=== PATIENT | female | born 2000 | race Caucasian/White ===

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

== ENCOUNTER 2020-01-26 14:53 | Emergency (ER) | payer OTHER ==
[~2020-01-26] VITALS: Ht 154.9 cm; Wt 53.9 kg
[2020-01-26 14:53] VITALS: BP 110/72
[~2020-01-26 14:53] MED LIST changes: -LIDO1SOL8 SS; +LIDO2SOL17 SS
[2020-01-26] MEDS ORDERED: DEPO150I12 IM (14:57)
[2020-01-26] MEDS ORDERED: ONDANSETRON 4MG/2ML VIAL (J2405) IV ONE (16:30)
[2020-01-26] MEDS ORDERED: KETOROLAC 30 MG/ML VIAL (J1885) IV ONE (16:30)
[2020-01-26] MEDS ORDERED: NS 1,000 ML IV ONE (16:30)
== END 2020-01-26 16:49 | disposition left against medical advice (07) ==
LOC: M ED 14:53
DX: Z53.29 Procedure and treatment not carried out because of patient's decision for other reasons (principal); Z79.899 Other long term (current) drug therapy

== ENCOUNTER → 2020-08-04 | Outpatient (REF) | payer OTHER ==
[~2020-08-04] MED LIST changes: +DEPO150I12 IM
== END ==
LOC: M LAB REF 10:11
PROVIDERS: ATTEND Physician Assistant
DX: Z20.828 Contact with and (suspected) exposure to other viral communicable diseases (principal)

== ENCOUNTER → 2020-12-07 | Outpatient (REF) | payer OTHER ==
[2020-12-07 14:18] LABS: CHLAMYDIA DNA AMPLIFICATION NEGATIVE (NEGATIVE); GC DNA AMPLIFICATION NEGATIVE (NEGATIVE)
== END ==
LOC: M LAB REF 11:46
PROVIDERS: ATTEND Physician Assistant
DX: Z11.3 Encounter for screening for infections with a predominantly sexual mode of transmission (principal)

== ENCOUNTER 2021-10-01 15:11 | Emergency (ER) | payer OTHER ==
[~2021-10-01] VITALS: Ht 157.5 cm; Wt 55.3 kg
--- OUTSIDE RECORDS SUMMARY | 2021-10-01 15:19 | CCD ---
Author Author [facility] Organization [facility] Address Unknown Phone Unavailable Support Name Relationship Address Phone CHASITY COPELAND Next Of Kin [address] [place] [address] FOUZIA CANTU Next Of Kin [address] [place] [address] UE Next Of Kin Unknown Unavailable FOUZIA COPELAND Next Of Kin [address] [place] [address] Re-disclosure Warning The records that you are about to access may contain information from federally-assisted alcohol or drug abuse programs. If such information is present, then the following federally mandated warning applies: This information has been disclosed to you from records protected by federal confidentiality rules (42 CFR part 2). The federal rules prohibit you from making any further disclosure of this information unless further disclosure is expressly permitted by the written consent of the person to whom it pertains or as otherwise permitted by 42 CFR part 2. A general authorization for the release of medical or other information is NOT sufficient for this purpose. The Federal rules restrict any use of the information to criminally investigate or prosecute any alcohol or drug abuse patient.The records that you are about to access may contain highly sensitive health information, the redisclosure of which is protected by Article 27-F of the [facility] Public Health law. If you continue you may have access to information: Regarding HIV / AIDS; Provided by facilities licensed or operated by the [facility] Office of Mental Health; or Provided by the [facility] Office for People With Developmental Disabilities. If such information is present, then the following [facility] mandated warning applies: This information has been disclosed to you from confidential records which are protected by state law. State law prohibits you from making any further disclosure of this information without the specific written consent of the person to whom it pertains, or as otherwise permitted by law. Any unauthorized further disclosure in violation of state law may result in a fine or correction sentence or both. A general authorization for the release of medical or other information is NOT sufficient authorization for further disc losure. Encounters Encounter Providers Location Date Indications Data Source(s ) ( [place]) [facility] Nurse Visit [address] [place] [address] 01/22/2021 12:00:00 AM EST eCW1 ([facility]) ( [place]) [facility] Nurse Visit [address] [place] [address] 10/30/2020 12:00:00 AM EST eCW1 ([facility]) Immunizations Vaccine Date Status Description Data Source(s) 01/22/2021 01:35:00 PM EST completed e CW1 ([facility]) 10/30/2020 08:45:00 AM EST completed e CW1 ([facility]) 10/30/2020 08:45:00 AM EST completed e CW1 ([facility]) Medications Medication Brand Name Start Date Product Form Dose Route Admi nistrative Instructions Pharmacy Instructions Status Indications Reaction Description Data Source(s) 500 mg 12/07/2020 12:00:00 AM EST tablet 2 TAKE 2 TABLETS BY MOUTH TODAY TAKE 2 TABLETS BY MOUTH TODAY SOLD: 12/08/2020 [facility] 500 mg 11/03/2020 12:00:00 AM EST tablet 2 TAKE 2 TABLETS BY MOUTH ONCE NOW TAKE 2 TABLETS BY MOUTH ONCE NOW SOLD: 11/03/2020 [facility] Insurance Providers Payer name Policy type / Coverage type Policy ID Covered constitution party ID Covered constitution party's relationship to petit Policy Petit Plan Information [facility] [id number] SP [id number] [facility] [id number] SELF PAY UNAVAILABLE MO2 UNAVAILA BLE MEDICAID [id number] SP [id number] Problems, Conditions, and Diagnoses No Information Surgeries/Procedures Procedure Description Date Indications Data Source(s) Injection, medroxyprogesterone acetate for contraceptive use , 150 mg 01/22/2021 12:00:00 AM EST eCW1 ([facility]) Injection, medroxyprogesterone acetate for contraceptive use , 150 mg 10/30/2020 12:00:00 AM EST eCW1 ([facility]) URINE TEST 10/30/2020 12:00:00 AM EST eCW1 ([facility]) Results ID Date Data Source [id number] 01/10/2021 12:00:00 AM EST [facility] Name Value Range Interpretation Code Description Data Karen rce(s) Supporting Document(s) SARS-CoV2 Rapid Antigen [facility] This lab was ordered by [facility] and reported by [facility]. ID Date Data Source [id number] 08/04/2020 12:00:00 PM EDT [facility] Name Value Range Interpretation Code Description Data Karen rce(s) Supporting Document(s) SARS coronavirus 2 RNA [facility] This lab was ordered by [facility] and reported by [facility]. Procedure Social History No Information
--- OUTSIDE RECORDS SUMMARY | 2021-10-01 16:42 | CCD ---
Author Author [facility] Organization [facility] Address Unknown Phone Unavailable Support Name Relationship Address Phone CHASITY COPELAND Next Of Kin [address] [place] [address] FOUZIA CANTU Next Of Kin [address] [place] [address] UE Next Of Kin Unknown Unavailable FOUZIA COPELAND Next Of Kin [address] [place] [address] Re-disclosure Warning The records that you are [...] is protected by Article 27-F of the [facility] Public Health law. If you continue you may have access to information: Regarding HIV / AIDS; Provided by facilities licensed or operated by the [facility] Office of Mental Health; or Provided by the [facility] Office for People With Developmental Disabilities. If such information is present, then the following [facility] mandated warning applies: This information [...] law may result in a fine or [place] [facility] sentence or both. A general authorization for the release of medical or other information is NOT sufficient authorization for further disc losure. Encounters Encounter Providers Location Date Indications Data Source(s ) ( [place]) [facility] Nurse Visit [address] [place] [address] 01/22/2021 12:00:00 AM EST eCW1 ([facility]) ( [place]) [facility] Nurse Visit [address] [place] [address] 10/30/2020 12:00:00 AM EST eCW1 ([facility]) Immunizations Vaccine Date Status Description Data Source(s) 01/22/2021 01:35:00 PM EST completed e CW1 ([facility]) 10/30/2020 08:45:00 AM EST completed e CW1 ([facility]) 10/30/2020 08:45:00 AM EST completed e CW1 ([facility]) Medications Medication Brand Name Start Date Product [...] type / Coverage type Policy ID Covered democrat ID Covered democrat's relationship to petit Policy Petit Plan Information [facility] [id number] SP [id number] [facility] [id number] SELF PAY UNAVAILABLE MO2 UNAVAILA BLE MEDICAID [id number] SP [id number] Problems, Conditions, and Diagnoses No Information Surgeries/Procedures Procedure Description Date Indications Data Source(s) Injection, medroxyprogesterone acetate for contraceptive use , 150 mg 01/22/2021 12:00:00 AM EST eCW1 ([facility]) Injection, medroxyprogesterone acetate for contraceptive use , 150 mg 10/30/2020 12:00:00 AM EST eCW1 ([facility]) URINE TEST 10/30/2020 12:00:00 AM EST eCW1 ([facility]) Results ID Date Data Source [id number] 01/10/2021 12:00:00 AM EST [facility] Name Value Range Interpretation Code Description Data Karen rce(s) Supporting Document(s) SARS-CoV2 Rapid Antigen [facility] This lab was ordered by [facility] and reported by [facility]. ID Date Data Source [id number] 08/04/2020 12:00:00 PM EDT [facility] Name Value Range Interpretation Code Description Data Karen rce(s) Supporting Document(s) SARS coronavirus 2 RNA [facility] This lab was ordered by [facility] and reported by [facility]. Procedure Social History No Information
[2021-10-01] MEDS ORDERED: KETOROLAC 30 MG/ML 1ML VIAL IV ONE (17:15)
[2021-10-01 17:27] LABS: BASO # 0.1 10^3/uL (0.0-0.2); BASO % 0.6 % (0.0-1.0); EOS % 0.5 % (0.0-3.0); HEMATOCRIT 39.2 % (36.0-47.0); HEMOGLOBIN 13.3 g/dl (12.0-15.5); LYMPH # 1.4 10^3/uL (1.5-5.0); LYMPH % 17.2 % (24.0-44.0); MEAN CORPUSCULAR HEMOGLOBIN 30.4 pg (27.0-33.0); MEAN CORPUSCULAR HGB CONC 33.9 g/dl (32.0-36.5); MEAN CORPUSCULAR VOLUME 89.7 fl (80.0-96.0); MONO # 0.5 10^3/uL (0.0-0.8); MONO % 6.1 % (2.0-8.0); NEUTROPHILS % 75.3 % (36.0-66.0); PLATELET COUNT, AUTOMATED 243 10^3/uL (150-450); RED BLOOD COUNT 4.37 10^6/uL (4.00-5.40); WHITE BLOOD COUNT 7.9 10^3/uL (4.0-10.0)
[2021-10-01 17:40] LABS: ALBUMIN 4.1 GM/DL (3.2-5.2); BILIRUBIN,DIRECT 0.3 MG/DL (0.0-0.2); BILIRUBIN,TOTAL 1.4 MG/DL (0.2-1.0); TOTAL PROTEIN 7.1 GM/DL (6.4-8.2)
--- NOTE | 2021-10-01 18:16 | REPVR ---
PROCEDURE INFORMATION: Exam: CT Abdomen And Pelvis Without Contrast Exam date and time: 10/01/2021 5:13 PM Age: 20 years old Clinical indication: Pain; Other: Left flank; Additional info: L flank pain, polyuria TECHNIQUE: Imaging protocol: Computed tomography of the abdomen and pelvis without contrast. Radiation optimization: All CT scans at this facility use at least one of these dose optimization techniques: automated exposure control; mA and/or kV adjustment per patient size (includes targeted exams where dose is matched to clinical indication); or iterative reconstruction. COMPARISON: CT ABD/PEL W/IV CONTRAST ONLY 09/20/2019 2:30 AM FINDINGS: Liver: Normal. No mass. Gallbladder and bile ducts: Normal. No calcified stones. No ductal dilation. Pancreas: Normal. No ductal dilation. Spleen: Normal. No splenomegaly. Adrenal glands: Normal. No mass. Kidneys and ureters: Normal. No hydronephrosis. Stomach and bowel: Unremarkable. No obstruction. No mucosal thickening. Appendix: No evidence of appendicitis. Intraperitoneal space: Unremarkable. No free air. No significant fluid collection. Vasculature: Unremarkable. No abdominal aortic aneurysm. Lymph nodes: Unremarkable. No enlarged lymph nodes. Urinary bladder: Unremarkable as visualized. Reproductive: Unremarkable as visualized. Bones/joints: Unremarkable. No acute fracture. Soft tissues: Unremarkable. IMPRESSION: No acute findings. Electronically signed by: Fernandez Black On 10/01/2021 18:16:02 PM
[2021-10-01 18:40] VITALS: BP 121/67
[2021-10-01] MEDS ORDERED: NAPR-837 PO (18:57)
== END 2021-10-01 19:10 | disposition home or self-care (01) ==
LOC: M ED 15:11
DX: R10.9 Unspecified abdominal pain (principal); Z79.3 Long term (current) use of hormonal contraceptives
CPT/HCPCS: 74176; 80047; 80076; 83690; 84702; 85025; 96374; 99284; J1885

== ENCOUNTER 2022-01-08 08:42 | Emergency (ER) | payer OTHER ==
[~2022-01-08] VITALS: Ht 157.5 cm; Wt 54.5 kg
[~2022-01-08 08:42] MED LIST changes: +NAPR-837 PO
[2022-01-08] MEDS ORDERED: OMEP-173 (09:00)
[2022-01-08] MEDS ORDERED: ONDA4TAB6 PO (11:20)
[2022-01-08 11:33] VITALS: BP 110/61
[2022-01-08 11:39] LABS: HEMATOCRIT 37.9 % (36.0-47.0); MEAN CORPUSCULAR HEMOGLOBIN 31.3 pg (27.0-33.0); MEAN CORPUSCULAR HGB CONC 34.3 g/dl (32.0-36.5); MEAN CORPUSCULAR VOLUME 91.3 fl (80.0-96.0); PLATELET COUNT, AUTOMATED 203 10^3/uL (150-450); RED BLOOD COUNT 4.15 10^6/uL (4.00-5.40); WHITE BLOOD COUNT 5.8 10^3/uL (4.0-10.0)
== END 2022-01-08 11:34 | disposition home or self-care (01) ==
LOC: M ED 08:42
DX: S06.0X0A Concussion without loss of consciousness, initial encounter (principal); S00.81XA Abrasion of other part of head, initial encounter; S70.01XA Contusion of right hip, initial encounter; W00.0XXA Fall on same level due to ice and snow, initial encounter; Y92.018 Other place in single-family (private) house as the place of occurrence of the external cause; K21.9 Gastro-esophageal reflux disease without esophagitis; Z79.899 Other long term (current) drug therapy; F12.20 Cannabis dependence, uncomplicated

== ENCOUNTER 2023-11-19 13:29 | Emergency (ER) | payer OTHER ==
[~2023-11-19] VITALS: Ht 157.5 cm; Wt 56.8 kg
[~2023-11-19 13:29] MED LIST changes: +ACET-907 PO; +ACET325C5 PO; +AMOX875T2 PO; +BENZ200C70; +CEFD300CAP PO; +DOXY-443 PO; +DOXY-444 PO; +DOXY100T PO; +GNPCAP31 PO; +IBUP1TAB7 PO; +IBUP80TA PO; +LIDO15SO SS; -LIDO2SOL17 SS; +OMEP-173
[2023-11-19 14:12] LABS: BASO % 0.5 % (0.0-1.0); EOS # 0.1 10^3/uL (0.0-0.5); EOS % 0.6 % (0.0-3.0); HEMATOCRIT 39.9 % (36.0-47.0); HEMOGLOBIN 13.2 g/dl (12.0-15.5); LYMPH # 1.4 10^3/uL (1.5-5.0); LYMPH % 16.3 % (24.0-44.0); MEAN CORPUSCULAR HEMOGLOBIN 30.3 pg (27.0-33.0); MEAN CORPUSCULAR HGB CONC 33.1 g/dl (32.0-36.5); MEAN CORPUSCULAR VOLUME 91.5 fl (80.0-96.0); MONO # 0.6 10^3/uL (0.0-0.8); MONO % 6.8 % (2.0-8.0); NEUTROPHILS # 6.3 10^3/uL (1.5-8.5); NEUTROPHILS % 73.5 % (36.0-66.0); PLATELET COUNT, AUTOMATED 398 10^3/uL (150-450); RED BLOOD COUNT 4.36 10^6/uL (4.00-5.40); WHITE BLOOD COUNT 8.5 10^3/uL (4.0-10.0)
[2023-11-19 14:33] LABS: ETHYL ALCOHOL (ETHANOL) < 0.003 % (0.000-0.010)
[2023-11-19 14:34] LABS: CPK CREATINE PHOSPHOKINASE 22 U/L (34-145)
[2023-11-19 14:35] LABS: BLOOD UREA NITROGEN 15 MG/DL (9-23); CALCIUM LEVEL 8.6 MG/DL (8.5-10.1); CARBON DIOXIDE LEVEL 29 MMOL/L (20-31); CHLORIDE LEVEL 104 MMOL/L (98-107); CK-MB VALUE MASS < 1.0 NG/ML (<3.6); CREATININE FOR GFR 0.66 MG/DL (0.55-1.30); GLOMERULAR FILTRATION RATE > 60.0 (>60); GLUCOSE, FASTING 123 MG/DL (60-100); MAGNESIUM LEVEL 1.9 MG/DL (1.8-2.4); MB/CK RELATIVE INDEX 4.54 (< OR =4); POTASSIUM SERUM 3.9 MMOL/L (3.5-5.1); SODIUM LEVEL 138 MMOL/L (136-145)
[2023-11-19 14:39] LABS: THYROID STIMULATING HORMONE 1.334 uIU/ML (0.55-4.78)
[2023-11-19 14:40] LABS: HCG, SERUM QUALITATIVE NEGATIVE (NEGATIVE)
[2023-11-19 14:50] LABS: RSV AMPLIFICATION NEGATIVE (NEGATIVE)
[2023-11-19 15:14] LABS: AMPHETAMINES LEVEL URINE NEGATIVE (NEGATIVE); BARBITURATES URINE NEGATIVE (NEGATIVE); BENZODIAZEPINES URINE NEGATIVE (NEGATIVE); COCAINE METABOLITE URINE NEGATIVE (NEGATIVE); METHADONE URINE NEGATIVE (NEGATIVE); OPIATES URINE NEGATIVE (NEGATIVE)
[2023-11-19 15:15] LABS: PHENCYCLIDINE URINE NEGATIVE (NEGATIVE)
[2023-11-19 15:16] LABS: CANNABINOIDS URINE POSITIVE (NEGATIVE)
[2023-11-19 15:18] VITALS: BP 97/53; TEMP 98.3; O2SAT 99
== END 2023-11-19 15:21 | disposition home or self-care (01) ==
LOC: M ED 13:29
DX: U07.1 COVID-19 (principal); R55 Syncope and collapse; R00.0 Tachycardia, unspecified; F12.90 Cannabis use, unspecified, uncomplicated; Z79.2 Long term (current) use of antibiotics; Z79.1 Long term (current) use of non-steroidal anti-inflammatories (NSAID); Z79.83 Long term (current) use of bisphosphonates

== ENCOUNTER → 2024-07-09 | Outpatient (CLI) | payer OTHER ==
[~2024-07-09] MED LIST changes: +DOXY-323 PO; +DOXY-440 PO; -DOXY-443 PO; -DOXY-444 PO; -LIDO15SO SS; +LIDO15SO8 SS; +ONDA-282 PO; -ONDA4TAB6 PO
== END ==
LOC: M RAD 11:16
PROVIDERS: ATTEND Family Medicine
DX: M25.511 Pain in right shoulder (principal)

== ENCOUNTER → 2024-08-03 | Outpatient (CLI) | payer OTHER ==
[2024-08-03 10:23] LABS: HEMOGLOBIN 12.9 g/dl (12.0-15.5); MEAN CORPUSCULAR HEMOGLOBIN 30.9 pg (27.0-33.0); MEAN CORPUSCULAR HGB CONC 34.9 g/dl (32.0-36.5); MEAN CORPUSCULAR VOLUME 88.7 fl (80.0-96.0); PLATELET COUNT, AUTOMATED 205 10^3/uL (150-450); RED BLOOD COUNT 4.17 10^6/uL (4.00-5.40); WHITE BLOOD COUNT 5.9 10^3/uL (4.0-10.0)
[2024-08-03 10:42] LABS: HEMOGLOBIN A1c 4.9 % (4.0-6.0)
[2024-08-03 10:54] LABS: ALKALINE PHOSPHATASE 70 U/L (46-116); ALT/SGPT 28 U/L (7.0-40); AST/SGOT 25 U/L (<34); BILIRUBIN,TOTAL 1.4 MG/DL (0.3-1.2); BLOOD UREA NITROGEN 13 MG/DL (9-23); CALCIUM LEVEL 8.7 MG/DL (8.5-10.1); CARBON DIOXIDE LEVEL 30 MMOL/L (20-31); CHLORIDE LEVEL 105 MMOL/L (98-107); CHOLESTEROL LEVEL 121 MG/DL (<200); CHOLESTEROL RISK RATIO 2.49 (<5); CREATININE FOR GFR 0.69 MG/DL (0.55-1.30); GLOMERULAR FILTRATION RATE > 60.0 (>60); GLUCOSE, FASTING 84 MG/DL (60-100); HDL CHOLESTEROL 48.5 MG/DL (>40); IRON (FE) 97 UG/DL (50-170); LDL CHOLESTEROL 57.5 MG/DL (<100); NON-HDL-C 72.5 MG/DL; PERCENT SATURATION 30.6 % (13.2-45.0); POTASSIUM SERUM 3.7 MMOL/L (3.5-5.1); SODIUM LEVEL 138 MMOL/L (136-145); THYROID STIMULATING HORMONE 10.255 uIU/ML (0.55-4.78); TOTAL IRON BINDING CAPACITY 317 UG/DL (250-425); TOTAL PROTEIN 6.6 G/DL (5.7-8.2); TRIGLYCERIDES LEVEL 75 MG/DL (<150)
[2024-08-03 10:55] LABS: TOTAL 25(OH) VITAMIN D 21.2 NG/ML (20.0-100.0)
== END ==
LOC: M LAB 08:51
PROVIDERS: ATTEND Family Medicine
DX: D64.9 Anemia, unspecified (principal); R53.83 Other fatigue; E03.9 Hypothyroidism, unspecified

== ENCOUNTER → 2024-12-03 | Outpatient (CLI) | payer OTHER ==
[~2024-12-03] MED LIST changes: -DOXY-323 PO; +DOXY-441 PO
[2024-12-03 14:07] LABS: THYROXINE (T4) 10.2 UG/DL (4.5-10.9); TOTAL 25(OH) VITAMIN D 30.2 NG/ML (20.0-100.0)
[2024-12-03 14:08] LABS: THYROID STIMULATING HORMONE 0.258 uIU/ML (0.55-4.78)
[2024-12-03 14:11] LABS: TOTAL T3 130.3 NG/DL (60.0-181.0)
== END ==
LOC: M LAB 12:42
PROVIDERS: ATTEND Family Medicine
DX: E03.9 Hypothyroidism, unspecified (principal); R53.83 Other fatigue

== ENCOUNTER 2024-12-13 06:25 | Emergency (ER) | payer OTHER ==
[~2024-12-13] VITALS: Ht 157.5 cm; Wt 78.3 kg
[2024-12-13] MEDS ORDERED: LEVO88TA3 (06:31)
[2024-12-13] MEDS ORDERED: TRIA37.5 (06:31)
[2024-12-13] MEDS ORDERED: ERGO500029 (06:31)
[2024-12-13 07:10] LABS: BASO % 0.4 % (0.0-1.0); EOS # 0.1 10^3/uL (0.0-0.5); EOS % 0.9 % (0.0-3.0); HEMOGLOBIN 13.3 g/dl (12.0-15.5); LYMPH # 0.5 10^3/uL (1.5-5.0); LYMPH % 6.4 % (24.0-44.0); MEAN CORPUSCULAR HEMOGLOBIN 29.8 pg (27.0-33.0); MEAN CORPUSCULAR VOLUME 85.2 fl (80.0-96.0); MONO # 0.9 10^3/uL (0.0-0.8); MONO % 11.3 % (2.0-8.0); NEUTROPHILS # 6.4 10^3/uL (1.5-8.5); NEUTROPHILS % 80.6 % (36.0-66.0); PLATELET COUNT, AUTOMATED 228 10^3/uL (150-450); RED BLOOD COUNT 4.46 10^6/uL (4.00-5.40); WHITE BLOOD COUNT 7.9 10^3/uL (4.0-10.0)
[2024-12-13 07:22] LABS: INR 0.98; PARTIAL THROMBOPLASTIN TIME 30.3 SECONDS (24.8-34.2); PROTHROMBIN TIME 13.3 SECONDS (12.5-14.5)
[2024-12-13 07:42] LABS: AMYLASE 64 U/L (30-118); C REACTIVE PROTEIN QUANTITATIV 1.44 MG/DL (<1.0)
[2024-12-13 07:49] LABS: PROCALCITONIN 0.09 ng/ml
[2024-12-13 08:02] LABS: ALKALINE PHOSPHATASE 101 U/L (35-104); ALT/SGPT 19 U/L (7.0-40); AST/SGOT 15 U/L (<34); BILIRUBIN,DIRECT 0.6 MG/DL (<0.4); BILIRUBIN,TOTAL 1.8 MG/DL (0.3-1.2); BLOOD UREA NITROGEN 16 MG/DL (9-23); CARBON DIOXIDE LEVEL 26 MMOL/L (20-31); CHLORIDE LEVEL 105 MMOL/L (98-107); CREATININE FOR GFR 0.77 MG/DL (0.55-1.30); GLOMERULAR FILTRATION RATE > 60.0 (>60); GLUCOSE, FASTING 115 MG/DL (60-100); POTASSIUM SERUM 3.7 MMOL/L (3.5-5.1); SODIUM LEVEL 139 MMOL/L (136-145); TOTAL PROTEIN 7.2 G/DL (5.7-8.2)
[2024-12-13] MEDS: NS (Normal Saline) 0.9% 1,000 ML IV ONE (08:03)
[2024-12-13] MEDS ORDERED: OSEL75CA PO (09:49)
[2024-12-13 10:30] VITALS: BP 103/56; O2SAT 97
[2024-12-13 10:40] VITALS: TEMP 99.8
== END 2024-12-13 10:44 | disposition home or self-care (01) ==
LOC: M ED 06:25
DX: J09.X2 Influenza due to identified novel influenza A virus with other respiratory manifestations (principal); E86.0 Dehydration; E07.9 Disorder of thyroid, unspecified; Z79.899 Other long term (current) drug therapy

== ENCOUNTER → 2025-03-01 | Outpatient (CLI) | payer OTHER ==
[~2025-03-01] MED LIST changes: +ERGO500029; +LEVO88TA3; +OSEL75CA PO; +TRIA37.5
[2025-03-01 11:59] LABS: HEMATOCRIT 38.9 % (36.0-47.0); HEMOGLOBIN 13.3 g/dl (12.0-15.5); MEAN CORPUSCULAR HEMOGLOBIN 30.2 pg (27.0-33.0); MEAN CORPUSCULAR HGB CONC 34.2 g/dl (32.0-36.5); MEAN CORPUSCULAR VOLUME 88.2 fl (80.0-96.0); PLATELET COUNT, AUTOMATED 258 10^3/uL (150-450); RED BLOOD COUNT 4.41 10^6/uL (4.00-5.40); WHITE BLOOD COUNT 8.2 10^3/uL (4.0-10.0)
[2025-03-01 12:21] LABS: ALBUMIN 3.7 G/DL (3.2-5.2); ALKALINE PHOSPHATASE 102 U/L (35-104); ALT/SGPT 28 U/L (7.0-40); AST/SGOT 15 U/L (<34); BILIRUBIN,TOTAL 1.1 MG/DL (0.3-1.2); BLOOD UREA NITROGEN 11 MG/DL (9-23); CALCIUM LEVEL 8.8 MG/DL (8.5-10.1); CARBON DIOXIDE LEVEL 30 MMOL/L (20-31); CHLORIDE LEVEL 106 MMOL/L (98-107); CHOLESTEROL LEVEL 141 MG/DL (<200); CHOLESTEROL RISK RATIO 3.27 (<5); CREATININE FOR GFR 0.81 MG/DL (0.55-1.30); GLOMERULAR FILTRATION RATE > 90.0 (>60); GLUCOSE, FASTING 95 MG/DL (60-100); IRON (FE) 92 UG/DL (50-170); LDL CHOLESTEROL 82.4 MG/DL (<100); PERCENT SATURATION 26.3 % (13.2-45.0); POTASSIUM SERUM 4.2 MMOL/L (3.5-5.1); SODIUM LEVEL 143 MMOL/L (136-145); TOTAL IRON BINDING CAPACITY 350 UG/DL (250-425); TOTAL PROTEIN 6.7 G/DL (5.7-8.2); TRIGLYCERIDES LEVEL 78 MG/DL (<150)
[2025-03-01 12:23] LABS: TOTAL 25(OH) VITAMIN D 25.6 NG/ML (20.0-100.0)
== END ==
LOC: M LAB 11:32
PROVIDERS: ATTEND Family Medicine
DX: I10 Essential (primary) hypertension (principal)

== ENCOUNTER → 2025-05-17 | Outpatient (REF) | payer OTHER ==
[2025-05-17 12:35] LABS: APPEARANCE, URINE HAZY (CLEAR); BACTERIA, URINE AUTO NEGATIVE (NEGATIVE); BILIRUBIN, URINE AUTO NEGATIVE (NEGATIVE); BLOOD, URINE BLOOD NEGATIVE (NEGATIVE); GLUCOSE, URINE (UA) AUTO NEGATIVE (NEGATIVE); KETONE, URINE AUTO NEGATIVE (NEGATIVE); LEUKOCYTE ESTERASE, URINE AUTO TRACE (NEGATIVE); MUCUS, URINE LARGE (NEGATIVE); NITRITE, URINE AUTO NEGATIVE (NEGATIVE); PROTEIN, URINE AUTO NEGATIVE (NEGATIVE); RBC, URINE AUTO 3 /HPF (0-3); SPECIFIC GRAVITY URINE AUTO 1.028 (1.002-1.035); SQUAMOUS EPITHELIAL CELL UR AU 4 /HPF (0-6); UROBILINOGEN, URINE AUTO 0.2 mg/dL (0.0-2.0); WBC, URINE AUTO 9 /HPF (0-3)
[2025-05-17 13:27] LABS: Trichomonas vaginalis (AMP) POSITIVE (NEGATIVE)
[2025-05-17 13:57] LABS: GC DNA AMPLIFICATION NEGATIVE (NEGATIVE)
== END ==
LOC: M LAB REF 11:52
PROVIDERS: ATTEND Physician Assistant Medical
DX: Z20.2 Contact with and (suspected) exposure to infections with a predominantly sexual mode of transmission (principal)

== ENCOUNTER 2025-08-16 09:32 | Emergency (ER) | payer OTHER, SELFPAY ==
[~2025-08-16] VITALS: Ht 157.5 cm; Wt 76.8 kg
[~2025-08-16 09:32] MED LIST changes: -IBUP-1022 PO; +IBUP600T42 PO
[2025-08-16 09:34] VITALS: TEMP 97.9
[2025-08-16 11:09] LABS: APPEARANCE, URINE CLEAR (CLEAR); BACTERIA, URINE AUTO NEGATIVE (NEGATIVE); BILIRUBIN, URINE AUTO NEGATIVE (NEGATIVE); BLOOD, URINE BLOOD NEGATIVE (NEGATIVE); GLUCOSE, URINE (UA) AUTO NEGATIVE (NEGATIVE); KETONE, URINE AUTO NEGATIVE (NEGATIVE); LEUKOCYTE ESTERASE, URINE AUTO NEGATIVE (NEGATIVE); NITRITE, URINE AUTO NEGATIVE (NEGATIVE); PROTEIN, URINE AUTO NEGATIVE (NEGATIVE); RBC, URINE AUTO 0 /HPF (0-3); SPECIFIC GRAVITY URINE AUTO 1.003 (1.002-1.035); SQUAMOUS EPITHELIAL CELL UR AU 1 /HPF (0-6); UROBILINOGEN, URINE AUTO 0.2 mg/dL (0.0-2.0); WBC, URINE AUTO 0 /HPF (0-3)
[2025-08-16 11:40] VITALS: BP 106/52; O2SAT 99
== END 2025-08-16 11:41 | disposition home or self-care (01) ==
LOC: M ED 09:32
DX: S09.90XA Unspecified injury of head, initial encounter (principal); S23.41XA Sprain of ribs, initial encounter; V43.52XA Car driver injured in collision with other type car in traffic accident, initial encounter; Y92.9 Unspecified place or not applicable; Y93.9 Activity, unspecified; Y99.9 Unspecified external cause status; E03.9 Hypothyroidism, unspecified; Z79.899 Other long term (current) drug therapy